=== PATIENT | female | born 1975 | race Caucasian/White ===

== ENCOUNTER 2016-11-30 18:42 | Emergency (ER) | payer OTHER ==
[2016-11-30 19:10] VITALS: PULSE 64; RESP 16; TEMP 98.4; O2SAT 96
--- NOTE | 2016-11-30 20:09 | UCPHY ---
H & P Time Seen by Provider: 11/30/16 20:08 Patient Type: Established HPI/ROS: This patient became ill this morning with multiple cold-type symptoms and is concerned that she might have the flu. Symptoms consist of a subjective fever with chills but she also has nasal congestion, sore throat and cough but no chest pain, shortness of breath or earache. 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 REVIEW OF SYSTEMS: Constitutional: Malaise, subjective fever, chills Eyes: No complaints ENT: Nasal congestion, sore throat, no ear pain Respiratory: Cough, no shortness of breath Cardiac: No chest pain Gastrointestinal: Diarrhea, no nausea, vomiting or abdominal pain Genitourinary: Not addressed Musculoskeletal: Myalgias Skin: No rash Neurological: Headache Smoking Status: Never smoked Physical Exam: GENERAL: Well-appearing, well-nourished and in no acute distress. HEAD: Atraumatic, normocephalic. EYES: Pupils equal round and reactive to light, extraocular movements intact, sclera anicteric, conjunctiva are normal. ENT: TMs normal, nares patent, oropharynx clear without exudates. Moist mucous membranes. NECK: Normal range of motion, supple without lymphadenopathy or JVD. LUNGS: Breath sounds clear to auscultation bilaterally and equal. No wheezes rales or rhonchi. HEART: Regular rate and rhythm ABDOMEN: Soft, nontender, EXTREMITIES: Normal range of motion, NEUROLOGICAL: Cranial nerves II through XII grossly intact. Normal speech, normal gait. PSYCH: Normal mood, normal affect. SKIN: Warm, dry, normal turgor, no visible rashes or lesions. Constitutional: Initial Vital Signs Temperature (C) 36.9 C 11/30/16 19:08 Heart Rate 64 11/30/16 19:08 Respiratory Rate 16 11/30/16 19:08 O2 Sat (%) 96 11/30/16 19:08 O2 Delivery Mode Room Air Allergies/Adverse Reactions: aspirin Allergy (Verified 11/30/16 19:07) Hives ibuprofen Allergy (Verified 11/30/16 19:07) Hives naproxen Allergy (Verified 11/30/16 19:07) Hives Sulfa (Sulfonamide Antibiotics) Allergy (Verified 11/30/16 19:07) Home Medications: Medication Instructions Recorded Tums 500MG (OTC) 1 - 2 tab PO PRN PRN 03/03/15 Proventil Inhaler HFA (*) 11/30/16 Proventil Neb 11/30/16 Tylenol 11/30/16 Medical Decision Making Differential Diagnosis: I find no evidence for bacterial infection in believe that this patient has a nonspecific viral illness. Antibiotics are not indicated. - Data Points Laboratory Results: 11/30/16 11/30/16 11/30/16 Unknown 19:10 19:10 Influenza Typ A,B (DFA) NEGATIVE FOR FLU (NEGATIVE) Group A Strep Screen NEGATIVE (NEGATIVE) Group A Strep DNA Pending Departure - Departure Disposition: Home, Routine, Self-Care Clinical Impression: Acute bronchitis Qualifiers: Bronchitis organism: unspecified organism Qualified Code(s): J20.9 - Acute bronchitis, unspecified Upper respiratory infection Qualifiers: URI type: unspecified URI Qualified Code(s): J06.9 - Acute upper respiratory infection, unspecified Condition: Good Instructions: Acute Bronchitis (ED), Upper Respiratory Infection (ED) Additional Instructions: If your symptoms have not improved in 5 or 6 days or if they have not resolved in 10 days you should be re-evaluated. If at any time you feel that your symptoms worsen you should be seen right away. Keep herself well hydrated but do not force herself to eat. Get plenty of rest. Use Tylenol for aches and pains and fever. Referrals: NONE *PRIMARY CARE P,. [Primary Care Provider] - As per Instructions - PQRS PQRS Measurement: Not applicable
== END 2016-11-30 20:29 | disposition home or self-care (01) ==
LOC: CED 18:42
DX: J20.9 Acute bronchitis, unspecified (principal); J06.9 Acute upper respiratory infection, unspecified
CPT/HCPCS: 87400-PO; 87880-PO; 99214-PO; G0463-PO

== ENCOUNTER 2017-05-01 19:28 | Emergency (ER) | payer OTHER ==
[2017-05-01 19:36] VITALS: BP 117/59; PULSE 76; RESP 16; TEMP 97.7; O2SAT 98
--- NOTE | 2017-05-01 20:34 | EDPHY ---
H & P Stated Complaint: fall-slipped on milk--r ankle/foot pain HPI/ROS: Chief complaint: Right foot and ankle injury History of present illness: This is a 42-year-old female who presents to the emergency department for right foot and ankle injury. Earlier today she slipped on the floor, twisting her foot and ankle. Since then she has had pain in this region. She has also noted some soreness in her knee. The pain is making it difficult to ambulate. There is no report of open wound. No report of abnormal coolness or paresthesias. No other injuries are reported. - Personal History LMP (Females 10-55): Unknown Current Tetanus/Diphtheria Vaccine: Unsure Current Tetanus Diphtheria and Acellular Pertussis (TDAP): Unsure Tetanus Vaccine Date: aug 2012 - Medical/Surgical History Hx Asthma: Yes Hx Chronic Respiratory Disease: No Hx Diabetes: No Hx Cardiac Disease: No Hx Renal Disease: No Hx Cirrhosis: No Hx Alcoholism: No Hx HIV/AIDS: No Hx Splenectomy or Spleen Trauma: No Other PMH: exercise induced asthma. surg-rt acl 2003, polypectomy 2007, AMA, ^ BMI, low P4, Scoliosis, HSV 1&2, randal 2014 - Social History Smoking Status: Never smoked - Physical Exam Exam: General: Alert, nontoxic Skin: No open wounds to the right lower extremity Musculoskeletal: The right mid foot, lateral malleolus and knee diffusely tender to palpation. She can move the digits of the foot, the ankle and the knee well. The Achilles tendon is without apparent defect. She does appear to have discomfort ambulating. Vascular: DP and PT pulses 2+. Capillary refill brisk in the right foot. Neurologic: Sensation intact throughout the right lower extremity. Constitutional: Initial Vital Signs Temperature (C) 36.5 C 05/01/17 19:32 Heart Rate 76 05/01/17 19:32 Respiratory Rate 16 05/01/17 19:32 Blood Pressure 117/59 L 05/01/17 19:32 O2 Sat (%) 98 05/01/17 19:32 O2 Delivery Mode Room Air Allergies/Adverse Reactions: aspirin Allergy (Verified 11/30/16 19:07) Hives ibuprofen Allergy (Verified 11/30/16 19:07) Hives naproxen Allergy (Verified 11/30/16 19:07) Hives Sulfa (Sulfonamide Antibiotics) Allergy (Verified 11/30/16 19:07) Home Medications: Medication Instructions Recorded Tums 500MG (OTC) 1 - 2 tab PO PRN PRN 03/03/15 Albuterol Hfa Anes Only [Proair 1 mdi IH QID #0 mdi 11/30/16 Hfa Icu (*)] Albuterol Hfa Anes Only [Proair 2 puffs IH QID 11/30/16 Hfa Icu (*)] Proventil Neb 11/30/16 Tylenol 11/30/16 Medical Decision Making - Diagnostics Imaging: I viewed and interpreted images myself ED Course/Re-evaluation: Patient seen under the supervision of my secondary supervising physician Dr. Rajeev Thrasher. Patient presents to the emergency department for injuries to her right foot, ankle and knee. X-rays are negative. She is neurovascularly intact. William wrap and stirrup splint is applied. She has crutches at home and is encouraged to use them. She is referred to Orthopedics for further evaluation and care. Return precautions are given. Patient voiced understanding and agreement with plan. Differential Diagnosis: Included but not limited to contusion, sprain or strain, bony fracture, joint dislocation Departure - Departure Disposition: Home, Routine, Self-Care Clinical Impression: Foot sprain Qualifiers: Encounter type: initial encounter Laterality: right Qualified Code(s): S93.601A - Unspecified sprain of right foot, initial encounter Ankle sprain Qualifiers: Encounter type: initial encounter Involved ligament of ankle: unspecified ligament Laterality: right Qualified Code(s): S93.401A - Sprain of unspecified ligament of right ankle, initial encounter Condition: Good Instructions: Ankle Sprain (ED), Foot Sprain (ED) Additional Instructions: Follow-up with orthopedics or worker's compensation for continued evaluation and care If symptoms worsen or new symptoms develop return to the emergency room for recheck Referrals: NONE *PRIMARY CARE P,. [Primary Care Provider] - As per Instructions Neal Blanco MD [Medical Doctor] - As per Instructions
== END 2017-05-01 20:59 | disposition home or self-care (01) ==
DX: S93.601A Unspecified sprain of right foot, initial encounter (principal); S93.401A Sprain of unspecified ligament of right ankle, initial encounter; J45.909 Unspecified asthma, uncomplicated; W01.0XXA Fall on same level from slipping, tripping and stumbling without subsequent striking against object, initial encounter

== ENCOUNTER 2017-07-20 20:21 | Emergency (ER) | payer OTHER ==
[2017-07-20 20:26] VITALS: TEMP 98.4
--- NOTE | 2017-07-20 20:42 | EDPHY ---
H & P Time Seen by Provider: 07/20/17 20:28 HPI/ROS: CHIEF COMPLAINT: Right lower abdomen and pelvic pain HISTORY OF PRESENT ILLNESS: Patient had some right lower abdominal discomfort for the last 2 days. She said when she urinated she will feel some increasing sharp pain in her right pelvis area. She specifically did not have dysuria hematuria or flank pain. Tonight at 7:30 p.m. she was in the bathroom and had sudden worsening of the pain in her right lower pelvis and groin area. It radiated across the left side and now is better than when it was just starting and now is more diffuse in nature. Not associated with vomiting or diarrhea or fever or chills or recent trauma. No dysuria hematuria vaginal bleeding or vaginal discharge. REVIEW OF SYSTEMS: Eye: no change in vision ENT: no sore throat Cardiac: no chest pain or syncope, occasional palpitations but nothing new today Pulmonary: no cough or SOB Abdomen: no vomiting, diarrhea, abdominal pain Musculoskeletal: no back pain Skin: no rash Neuro: no headache Constitutional: no fever : no urinary symptoms A comprehensive 10 point review of systems is otherwise negative aside from elements mentioned in the history of present illness. PAST MEDICAL HISTORY: Includes asthma, right ACL surgery, cholecystectomy. Social history: associate principal, nonsmoker General Appearance: Alert and conversant, cooperative. Eyes: No scleral icterus. ENT, Mouth: Normal mucous membranes. Respiratory: Normal respiratory effort, breath sounds equal, lungs are clear to auscultation. Cardiovascular: Regular rate and rhythm. Gastrointestinal: Abdomen soft, some right lower abdomen tenderness near her inguinal area, no McBurney's point tenderness. No rebound or guarding. Bowel sounds are present. Neurological: Alert and oriented x3. Normally conversant. Face symmetric, normal movement and sensation in all extremities. Skin: Warm and dry, no rashes. Musculoskeletal: No peripheral edema and no joint swelling. Psychiatric: Not agitated. Emergency Department course/MDM: Urine dip and urine , right lower quadrant ultrasound to evaluate for torsion versus cyst. The patient is specifically here because she has a concern about ovarian torsion. 2052: UPT negative, dip negative for blood or infection. 2145: Ultrasound per Dr. Marion shows free fluid in the cul-de-sac, flow in both ovaries, can't see the appendix. No ovarian cyst seen on ultrasound. Think the most likely explanation for the patient's symptoms is she ruptured an ovarian cyst in the right side, that would explain her mild pain over the last couple of days with a sudden onset at 7:30 a.m. followed by improvement but with more diffuse pain afterwards. No peritoneal signs. Smoking Status: Never smoked Constitutional: Initial Vital Signs Temperature (C) 36.9 C 07/20/17 20:23 Heart Rate 75 07/20/17 20:23 Respiratory Rate 16 07/20/17 20:23 Blood Pressure 149/79 H 07/20/17 20:23 O2 Sat (%) 96 07/20/17 20:23 O2 Delivery Mode Room Air Allergies/Adverse Reactions: aspirin Allergy (Verified 11/30/16 19:07) Hives ibuprofen Allergy (Verified 11/30/16 19:07) Hives naproxen Allergy (Verified 11/30/16 19:07) Hives Sulfa (Sulfonamide Antibiotics) Allergy (Verified 11/30/16 19:07) Home Medications: Medication Instructions Recorded Tums 500MG (OTC) 1 - 2 tab PO PRN PRN 03/03/15 Albuterol Hfa Anes Only [Proair 1 mdi IH QID #0 mdi 11/30/16 Hfa Icu (*)] Albuterol Hfa Anes Only [Proair 2 puffs IH QID 11/30/16 Hfa Icu (*)] Proventil Neb 11/30/16 Tylenol 11/30/16 Medical Decision Making - Diagnostics Imaging Results: Imaging Impressions Abdomen Ultrasound 07/20/17 20:39 Impression: Indeterminate study for appendicitis as the appendix is not visualized. Results called and discussed with Dr. Silvestre Crooks at 07/20/2017 21:49. [email or web address]:jm Pelvic/Renal Ultrasound 07/20/17 20:39 Impression: Small amount of free fluid in the cul-de-sac. Otherwise normal pelvic ultrasound. Results called and discussed with Dr. Silvestre Crooks at 2147 hours 20 July 2017. Differential Diagnosis: Defer considered including but not limited to PID, ectopic, ovarian torsion, ovarian cyst, appendicitis, UTI. Departure - Departure Disposition: Home, Routine, Self-Care Clinical Impression: Ovarian cyst Qualifiers: Laterality: unspecified laterality Qualified Code(s): N83.209 - Unspecified ovarian cyst, unspecified side Condition: Good Instructions: Ovarian Cyst (ED) Additional Instructions: Ultrasound showed flow to both ovaries. I think 1 of the likely explanation severe symptoms is that you ruptured an ovarian cyst. No further cysts were seen on ultrasound but you had some free fluid in your pelvis. You need to return to the emergency department immediately if you develop worsening or severe pain, fever, vomiting or you are not completely better in 8- 12 hours. Referrals: Jamaica Ellsworth MD [Primary Care Provider] - As per Instructions
[2017-07-20 22:00] VITALS: BP 128/85; PULSE 80; RESP 15; O2SAT 99
== END 2017-07-20 22:03 | disposition home or self-care (01) ==
DX: N83.209 Unspecified ovarian cyst, unspecified side (principal); J45.909 Unspecified asthma, uncomplicated; Z90.49 Acquired absence of other specified parts of digestive tract

== ENCOUNTER 2017-08-27 18:35 | Emergency (ER) | payer OTHER ==
--- NOTE | 2017-08-27 20:59 | EDPHY ---
H & P Stated Complaint: N/V/D Time Seen by Provider: 08/27/17 20:58 HPI/ROS: HPI: This is a 42-year-old female who presents with Chief Complaint: N/V/D Location: GI Quality: Nausea vomiting diarrhea Duration: Started at 5:30 a.m. this morning Signs and Symptoms: + fever, + nausea, + vomiting, no hematemesis, no blood in stool, no abdominal bloating, + diarrhea, no back pain, no urinary symptoms, no vaginal bleeding/discharge, no indigestion, no chest pain, no shortness of breath Timing: Sudden, intermittent episodes Severity: Moderate to severe Context: Patient has a history of cholecystectomy and GERD presents with sudden onset of nausea and vomiting that started around 5:30 a.m. this morning. She then developed a low-grade fever. She has also had to 3 episodes of loose stools. She works as a principal at local school. A lot of her stools have had the stomach flu. She notes that over the last 2 days she has had increased abdominal bloating. + passing flatus. Unable to eat or drink today. Denies urinary symptoms. LMP 2-3 weeks ago. Modifying Factors: None Comment: ROS: see HPI Constitutional: No fever, no chills, no weight loss Eyes: No blurred vision Respiratory: No shortness of breath, no cough Cardiovascular: No chest pain, no palpitations Gastrointestinal: + nausea, + vomiting, + diarrhea, no hematemesis, no blood in stool Genitourinary: No dysuria, no blood in urine Extremities: No myalgias, no edema Neurologic: No weakness, no numbness Skin: No rashes, no petechiae Hematologic: No bruising, no bleeding MEDICAL/SURGICAL/SOCIAL HISTORY: Medical/Surgical history: exercise induced asthma, GERD Right acl 2003, polypectomy 2007, AMA, ^BMI, low P4, Scoliosis, HSV 1&2, randal 2014 Social history: . CONSTITUTIONAL: Pleasant nontoxic appearing adult white female, awake and alert , no obvious distress HEENT: Atraumatic and normocephalic, PERRL, EOMI. Tympanic membranes clear. Oropharynx clear, no exudate and moist pink mucosa. Airway patent. No lymphadenopathy. No meningismus. Cardiovascular: Normal S1/S2, regular rate, regular rhythm, without murmur rub or gallop. PULMONARY/CHEST: Symmetrical and nontender. Clear to auscultation bilaterally. Good air movement. No accessory muscle usage. ABDOMEN: Soft, nondistended, nontender, no rebound, no guarding, no peritoneal signs, no masses or organomegaly. No CVAT. EXTREMITIES: 2/2 pulses, strength 5/5, no deformities, no clubbing, no cyanosis or edema. NEUROLOGICAL: no focal neuro deficits. GCS 15. SKIN: Warm and dry, no erythema. no rash. Good capillary refill. Source: Patient Exam Limitations: No limitations - Personal History LMP (Females 10-55): 22-28 Days Ago Current Tetanus Diphtheria and Acellular Pertussis (TDAP): Yes Tetanus Vaccine Date: aug 2012 - Medical/Surgical History Hx Asthma: Yes Hx Chronic Respiratory Disease: No Hx Diabetes: No Hx Cardiac Disease: No Hx Renal Disease: No Hx Cirrhosis: No Hx Alcoholism: No Hx HIV/AIDS: No Hx Splenectomy or Spleen Trauma: No Other PMH: exercise induced asthma. surg-rt acl 2003, polypectomy 2007, AMA, ^ BMI, low P4, Scoliosis, HSV 1&2, randal 2014. GERD - Social History Smoking Status: Never smoked Constitutional: Initial Vital Signs Temperature (C) 37.2 C 08/27/17 18:40 Heart Rate 90 08/27/17 18:40 Respiratory Rate 18 08/27/17 18:40 Blood Pressure 125/75 H 08/27/17 18:40 O2 Sat (%) 99 08/27/17 18:40 O2 Delivery Mode Room Air Allergies/Adverse Reactions: aspirin Allergy (Verified 11/30/16 19:07) Hives ibuprofen Allergy (Verified 11/30/16 19:07) Hives naproxen Allergy (Verified 11/30/16 19:07) Hives Home Medications: Medication Instructions Recorded Ondansetron Odt [Zofran Odt 4 mg 4 mg PO Q4 PRN #12 tab 08/27/17 (*)] Medical Decision Making - Diagnostics Imaging Results: Imaging Impressions Abdomen CT 08/27/17 21:08 Impression: 1. Prior cholecystectomy, without biliary ductal dilation. 2. No CT evidence of appendicitis, abscess, or bowel obstruction. 3. Mild mesenteric lymphadenitis, without bowel obstruction or pneumoperitoneum. Findings and recommendations discussed with Emergency Department physician, Mago Posey PA-C, at 2216 hours, on August 27, 2017. Final report concurs with initial preliminary interpretation. ED Course/Re-evaluation: Labs, urinalysis, IV fluids, IV medications, CT abdomen and pelvis scan ordered Vital signs reviewed and stable upon arrival. Given 2 L normal saline, GI cocktail, IV Zofran moderate relief. 2210: Called by radiologist; CT abdomen and pelvis scan shows no gallbladder, no signs of appendicitis/pancreatitis/colitis/obstruction. Labs reviewed; mild leukocytosis but no signs of anemia/acute kidney injury/ transaminitis/electrolyte imbalance Urinalysis shows trace LE, 5-10 WBC; sent for urine culture; will wait for urine culture results prior to starting antibiotics as patient is asymptomatic Reassessed patient who reports that nausea, vomiting and diarrhea have not occurred since she has been in the emergency room. She reports that she is feeling better and wishes to be discharged home. This patient was seen under the supervision of my secondary supervising physician. I evaluated care for this patient independently. Patient's presentation, labs/imaging, treatment and plan of care were discussed with secondary supervising physician. Differential Diagnosis: Abdominal pain including but not limited to appendicitis, cholecystitis, gastritis and urinary tract infection. - Data Points Laboratory Results: Laboratory Results 08/27/17 21:12 08/27/17 21:12 08/27/17 08/27/17 08/27/17 21:12 21:12 21:12 WBC 10.22 10^3/uL H 10^3/uL (3.80-9.50) RBC 4.61 10^6/uL 10^6/uL (4.18-5.33) Hgb 13.0 g/dL g/dL (12.6-16.3) Hct 38.8 % % (38.0-47.0) MCV 84.2 fL fL (81.5-99.8) MCH 28.2 pg pg (27.9-34.1) MCHC 33.5 g/dL g/dL (32.4-36.7) RDW 14.8 % % (11.5-15.2) Plt Count 243 10^3/uL 10^3/uL (150-400) MPV 9.2 fL fL (8.7-11.7) Neut % (Auto) 84.2 % H % (39.3-74.2) Lymph % (Auto) 10.9 % L % (15.0-45.0) [place] % (Auto) 4.0 % L % (4.5-13.0) Eos % (Auto) 0.3 % L % (0.6-7.6) Baso % (Auto) 0.2 % L % (0.3-1.7) Nucleat RBC Rel Count 0.0 % % (0.0-0.2) Absolute Neuts (auto) 8.61 10^3/uL H 10^3/uL (1.70-6.50) Absolute Lymphs (auto) 1.11 10^3/uL 10^3/uL (1.00-3.00) Absolute Monos (auto) 0.41 10^3/uL 10^3/uL (0.30-0.80) Absolute Eos (auto) 0.03 10^3/uL 10^3/uL (0.03-0.40) Absolute Basos (auto) 0.02 10^3/uL 10^3/uL (0.02-0.10) Absolute Nucleated RBC 0.00 10^3/uL 10^3/uL (0-0.01) Immature Gran % 0.4 % % (0.0-1.1) Immature Gran # 0.04 10^3/uL 10^3/uL (0.00-0.10) Sodium 137 mEq/L mEq/L (134-144) Potassium 3.9 mEq/L mEq/L (3.5-5.2) Chloride 100 mEq/L mEq/L (97-110) Carbon Dioxide 23 mEq/l mEq/l (22-31) Anion Gap 14 mEq/L mEq/L (8-16) BUN 10 mg/dL mg/dL (7-23) Creatinine 0.9 mg/dL mg/dL (0.6-1.0) Estimated GFR > 60 Glucose 100 mg/dL mg/dL (70-100) Calcium 8.7 mg/dL mg/dL (8.5-10.4) Total Bilirubin 0.8 mg/dL mg/dL (0.1-1.4) Conjugated Bilirubin 0.2 mg/dL mg/dL (0.0-0.5) Unconjugated Bilirubin 0.6 mg/dL mg/dL (0.0-1.1) AST 16 IU/L IU/L (14-46) ALT 25 IU/L IU/L (9-52) Alkaline Phosphatase 97 IU/L IU/L (38-126) Total Protein 7.5 g/dL g/dL (6.3-8.2) Albumin 4.2 g/dL g/dL (3.5-5.0) Lipase 53 IU/L IU/L (23-300) Beta HCG, Qual NEGATIVE Urine Color Urine Appearance Urine pH Ur Specific [place] Urine Protein Urine Ketones Urine Blood Urine Nitrate Urine Bilirubin Urine Urobilinogen Ur Leukocyte Esterase Urine RBC Urine WBC Ur Epithelial Cells Urine Mucus Urine Glucose 08/27/17 21:00 WBC RBC Hgb Hct MCV MCH MCHC RDW Plt Count MPV Neut % (Auto) Lymph % (Auto) [place] % (Auto) Eos % (Auto) Baso % (Auto) Nucleat RBC Rel Count Absolute Neuts (auto) Absolute Lymphs (auto) Absolute Monos (auto) Absolute Eos (auto) Absolute Basos (auto) Absolute Nucleated RBC Immature Gran % Immature Gran # Sodium Potassium Chloride Carbon Dioxide Anion Gap BUN Creatinine Estimated GFR Glucose Calcium Total Bilirubin Conjugated Bilirubin Unconjugated Bilirubin AST ALT Alkaline Phosphatase Total Protein Albumin Lipase Beta HCG, Qual Urine Color YELLOW Urine Appearance HAZY Urine pH 5.0 (5.0-7.5) Ur Specific [place] 1.015 (1.002-1.030) Urine Protein NEGATIVE (NEGATIVE) Urine Ketones NEGATIVE (NEGATIVE) Urine Blood NEGATIVE (NEGATIVE) Urine Nitrate NEGATIVE (NEGATIVE) Urine Bilirubin NEGATIVE (NEGATIVE) Urine Urobilinogen NEGATIVE EU EU (0.2-1.0) Ur Leukocyte Esterase TRACE H (NEGATIVE) Urine RBC NONE SEEN /hpf /hpf (0-3) Urine WBC 5-10 /hpf H /hpf (0-3) Ur Epithelial Cells TRACE /lpf /lpf (NONE-1+) Urine Mucus TRACE /lpf /lpf (NONE-1+) Urine Glucose NEGATIVE (NEGATIVE) Medications Given: Discontinued Medications Al Hydroxide/Mg Hydroxide (Maalox Susp) 30 ml PO ONCE ONE Stop: 08/27/17 22:16 Last Admin: 08/27/17 22:30 Dose: 30 ml Hyoscyamine Sulfate (Levsin, Hyomax-Sl) 0.25 mg PO ONCE ONE Stop: 08/27/17 22:16 Last Admin: 08/27/17 22:30 Dose: 0.25 mg Sodium Chloride (Ns) 1,000 mls @ 0 mls/hr IV EDNOW ONE; Wide Open PRN Reason: Protocol Stop: 08/27/17 21:09 Last Admin: 08/27/17 21:24 Dose: 1,000 mls Sodium Chloride (Ns) 1,000 mls @ 0 mls/hr IV EDNOW ONE; Wide Open PRN Reason: Protocol Stop: 08/27/17 21:09 Last Admin: 08/27/17 21:24 Dose: 1,000 mls Lidocaine (Lidocaine 2% Viscous) 15 ml PO ONCE ONE Stop: 08/27/17 22:16 Last Admin: 08/27/17 22:30 Dose: 15 ml Ondansetron HCl (Zofran) 4 mg IVP EDNOW ONE Stop: 08/27/17 21:09 Last Admin: 08/27/17 21:24 Dose: 4 mg Ondansetron HCl (Zofran Odt 4 Mg Prepack#2) 1 btl TAKEHOME EDNOW ONE Stop: 08/27/17 22:18 Last Admin: 08/27/17 22:30 Dose: 1 btl Departure - Departure Disposition: Home, Routine, Self-Care Clinical Impression: Gastroenteritis Condition: Good Instructions: Ondansetron (By mouth), Gastroenteritis (ED) Additional Instructions: Please rest as much as possible over the next 2-3 days. Drink plenty of fluids to prevent dehydration. Eat a bland diet for the next 48 hr and slowly advance as tolerated. If after 2-3 days your symptoms persist; please follow-up with your primary care provider for re-evaluation. Referrals: [facility] [Other] - As per Instructions Prescriptions: Ondansetron Odt [Zofran Odt 4 mg (*)] 4 mg PO Q4 PRN #12 tab PRN Reason: Nausea/Vomiting, Use 1st
[2017-08-27] MEDS ORDERED: NS 1,000 ML IV ONE ×2 (21:08)
[2017-08-27] MEDS ORDERED: ONDANSETRON 4 MG/2 ML VIAL IVP ONE (21:08)
[2017-08-27 21:20] LABS: COLOR YELLOW; LEUKOCYTE ESTERASE,URINE TRACE (NEGATIVE); NITRITE,URINE NEGATIVE (NEGATIVE)
[2017-08-27 21:25] LABS: % IMMATURE GRANULYOCYTES 0.4 % (0.0-1.1); ABSOLUTE IMMATURE GRANULOCYTES 0.04 10^3/uL (0.00-0.10); ADD DIFF? NO; ADD MORPH? NO; ADD SCAN? NO; ATYPICAL LYMPHOCYTE FLAG 20 (0-99); FRAGMENT RBC FLAG 0 (0-99); HEMATOCRIT 38.8 % (38.0-47.0); LEFT SHIFT FLG 0 (0-99); LIPEMIA HEMOLYSIS FLAG 80 (0-99); MEAN CELL HEMOGLOBIN 28.2 pg (27.9-34.1); MEAN CELL HEMOGLOBIN CONCENTR. 33.5 g/dL (32.4-36.7); MEAN CELL VOLUME 84.2 fL (81.5-99.8); MEAN PLATELET VOLUME 9.2 fL (8.7-11.7); PLATELET CLUMPS FLAG 0 (0-99); PLATELET COUNT 243 10^3/uL (150-400); RED BLOOD CELL COUNT 4.61 10^6/uL (4.18-5.33); RED CELL DISTRIBUTION WIDTH 14.8 % (11.5-15.2)
[2017-08-27 21:41] LABS: ALANINE AMINOTRANSFERASE 25 IU/L (9-52); ALBUMIN 4.2 g/dL (3.5-5.0); ALKALINE PHOSPHATASE 97 IU/L (38-126); ANION GAP 14 mEq/L (8-16); ASPARTATE AMINOTRANSFERASE 16 IU/L (14-46); BILIRUBIN,TOTAL 0.8 mg/dL (0.1-1.4); BILIRUBIN-CONJUGATED 0.2 mg/dL (0.0-0.5); BILIRUBIN-UNCONJUGATED 0.6 mg/dL (0.0-1.1); CALCIUM 8.7 mg/dL (8.5-10.4); CARBON DIOXIDE 23 mEq/l (22-31); CHLORIDE 100 mEq/L (97-110); CREATININE 0.9 mg/dL (0.6-1.0); GLOMERULAR FILTRATION RATE > 60; GLUCOSE 100 mg/dL (70-100); POTASSIUM 3.9 mEq/L (3.5-5.2); SODIUM 137 mEq/L (134-144); TOTAL PROTEIN 7.5 g/dL (6.3-8.2)
[2017-08-27] MEDS ORDERED: IOPAMIDOL (ISOVUE-300) 100 ML BTL ONE (21:43)
[2017-08-27] MEDS ORDERED: MAG HYDROX/AL HYDROX/SIMETH 30 ML UDCUP PO ONE (22:15)
[2017-08-27] MEDS ORDERED: HYOSCYAMINE SULFATE 0.125 MG TAB PO ONE (22:15)
[2017-08-27] MEDS ORDERED: LIDOCAINE 2% VISCOUS 15 ML UDCUP PO ONE (22:15)
[2017-08-27] MEDS ORDERED: ONDANSETRON 4MG PREPACK#2 BTL TAKEHOME ONE (22:17)
[2017-08-27 22:43] LABS: MUCUS TRACE /lpf (NONE-1+)
[2017-08-27 22:44] LABS: RBC,URINE NONE SEEN /hpf (0-3)
[2017-08-27 23:08] VITALS: O2SAT 97
[2017-08-27 23:10] VITALS: BP 108/55; PULSE 82; RESP 16; TEMP 98.6
== END 2017-08-27 23:10 | disposition home or self-care (01) ==
DX: K52.9 Noninfective gastroenteritis and colitis, unspecified (principal); J45.909 Unspecified asthma, uncomplicated; E86.9 Volume depletion, unspecified; Z79.82 Long term (current) use of aspirin
CPT/HCPCS: 96374; J2405; Q9967